=== PATIENT | male | born 1980 | race Hispanic/Latino ===

== ENCOUNTER 2019-03-12 12:30 | Emergency (ER) | payer SELFPAY ==
[2019-03-12] MEDS ORDERED: Fluorescein Opthalmic Strip ONE (13:07)
[2019-03-12] MEDS ORDERED: Proparacaine 0.5% Opth 15 ML BOT ONE (13:07)
[2019-03-12] MEDS ORDERED: Ketorolac Tromethamine 30 MG/ML VIAL ONE (13:30)
== END 2019-03-12 13:53 | disposition home or self-care (01) ==
LOC: ERS 12:30
DX: S05.01XA Injury of conjunctiva and corneal abrasion without foreign body, right eye, initial encounter (principal); X58.XXXA Exposure to other specified factors, initial encounter
CPT/HCPCS: 96372; 99283; J1885